=== PATIENT | male | born 1950 | race Caucasian/White ===

== ENCOUNTER 2017-09-09 09:23 | Emergency (ER) | payer MEDICARE, OTHER ==
[2017-09-09 17:19] LABS: ADD MAN DIFF? NO
[2017-09-09 17:20] LABS: ABNORMAL IP MESSAGE 1; BASOPHILS % 0.4 % (0.0-2.0); EOSINOPHILS # 0.3 10^3/ul (0.0-0.5); EOSINOPHILS % 3.5 % (0.0-7.0); HEMATOCRIT 26.8 % (42.0-52.0); HEMOGLOBIN 7.7 g/dl (14.0-18.0); LYMPHOCYTES # 1.6 10^3/ul (0.8-2.9); MEAN CORPUSCULAR HEMOGLOBIN 20.2 pg (29.0-33.0); MEAN CORPUSCULAR HGB CONC 28.7 g/dl (32.0-37.0); MEAN CORPUSCULAR VOLUME 70.3 fl (82.0-101.0); MEAN PLATELET VOLUME 9.3 fl (7.4-10.4); MONOCYTE # 0.5 10^3/ul (0.3-0.9); MONOCYTES % 6.3 % (0.0-11.0); NEUTROPHIL # 5.5 10^3/ul (1.6-7.5); NEUTROPHILS % 69.2 % (39.0-77.0); PLATELET COUNT 355 10^3/UL (140-415); POSITIVE DIFF @See below; RED BLOOD COUNT 3.81 10^6/ul (4.70-6.10); RED CELL DISTRIBUTION WIDTH 20.3 % (11.5-14.5)
[2017-09-09 17:20] LABS: WHITE BLOOD COUNT 7.9 10^3/ul (4.8-10.8)
[2017-09-09 17:37] LABS: INR 0.92; PARTIAL THROMBOPLASTIN TIME 24.7 Sec (25.0-35.0); PROTIME 12.4 Sec (11.9-14.9)
[2017-09-09 17:41] LABS: ANION GAP 17 (8-16); BLOOD UREA NITROGEN 14 mg/dl (7-20); CARBON DIOXIDE 24 mmol/L (21-31); CHLORIDE 104 mmol/L (97-110); CREATININE 1.28 mg/dl (0.61-1.24); GLUCOSE 101 mg/dl (70-220); POTASSIUM 4.2 mmol/L (3.5-5.1); SODIUM 141 mmol/L (135-144)
[2017-09-09 17:53] LABS: TROPONIN-I < 0.012 ng/ml (0.00-0.12)
== END 2017-09-09 19:03 | disposition home or self-care (01) ==
LOC: E/R 09:23
DX: D50.0 Iron deficiency anemia secondary to blood loss (chronic) (principal); K62.5 Hemorrhage of anus and rectum
CPT/HCPCS: 36415; 80048; 84484; 85025; 85610; 85730; 93005; 99284-25

== ENCOUNTER 2019-05-23 09:42 | Emergency (ER) | payer MEDICARE, OTHER ==
[2019-05-23] MEDS: SOD CHLORIDE 0.9% 1,000 ML IV (10:33)
[2019-05-23 10:37] LABS: ADD MAN DIFF? NO
[2019-05-23 10:45] LABS: WHITE BLOOD COUNT 5.1 10^3/ul (4.8-10.8)
[2019-05-23 10:45] LABS: ABNORMAL IP MESSAGE 1; BASOPHILS % 0.8 % (0.0-2.0); EOSINOPHILS # 0.4 10^3/ul (0.0-0.5); EOSINOPHILS % 8.4 % (0.0-7.0); HEMATOCRIT 30.2 % (42.0-52.0); HEMOGLOBIN 8.2 g/dl (14.0-18.0); LYMPHOCYTES # 1.2 10^3/ul (0.8-2.9); LYMPHOCYTES % 23.4 % (15.0-51.0); MEAN CORPUSCULAR HEMOGLOBIN 17.8 pg (29.0-33.0); MEAN CORPUSCULAR HGB CONC 27.2 g/dl (32.0-37.0); MEAN CORPUSCULAR VOLUME 65.5 fl (82.0-101.0); MEAN PLATELET VOLUME 9.7 fl (7.4-10.4); MONOCYTE # 0.4 10^3/ul (0.3-0.9); PLATELET COUNT 351 10^3/UL (140-415); POSITIVE DIFF @See below; RED BLOOD COUNT 4.61 10^6/ul (4.70-6.10); RED CELL DISTRIBUTION WIDTH 21.8 % (11.5-14.5)
[2019-05-23 11:03] LABS: ALANINE AMINOTRANSFERASE 24 IU/L (13-69); ALBUMIN/GLOBULIN RATIO 0.88; ALKALINE PHOSPHATASE 97 IU/L (42-121); ANION GAP 7 (5-13); ASPARTATE AMINO TRANSFERASE 31 IU/L (15-46); BILIRUBIN,INDIRECT 0.7 mg/dl (0-1.1); BILIRUBIN,TOTAL 0.7 mg/dl (0.2-1.3); BLOOD UREA NITROGEN 19 mg/dl (7-20); CARBON DIOXIDE 27 mmol/L (21-31); CHLORIDE 103 mmol/L (97-110); CREATININE 1.49 mg/dl (0.61-1.24); Estimated GFR 47 mL/min (>60); GLUCOSE 86 mg/dl (70-220); POTASSIUM 4.6 mmol/L (3.5-5.1); SODIUM 137 mmol/L (135-144); TOTAL PROTEIN 8.5 g/dl (6.1-8.1)
[2019-05-23 11:04] LABS: INR 0.92; PROTIME 12.5 Sec (11.9-14.9)
[2019-05-23 11:14] LABS: TROPONIN-I < 0.012 ng/ml (0.000-0.120)
== END 2019-05-23 13:06 | disposition home or self-care (01) ==
LOC: E/R 09:42
DX: R42 Dizziness and giddiness (principal); D64.9 Anemia, unspecified
CPT/HCPCS: 36415; 80053; 84484; 85025; 85610; 85730; 86850; 86900; 86901; 93005; 99284-25